=== PATIENT | female | born 1990 | race Caucasian/White ===

== ENCOUNTER 2018-05-21 07:00 | Day surgery (SDC) | payer OTHER ==
[~2018-05-21] VITALS: Ht 157.5 cm; Wt 54.4 kg
[~2018-05-21 07:00] MED LIST: CLONAZEPAM0.5 MG PO; LINZESS290 MCG PO; PANTOPRAZOLE SO40 MG PO; ULTIMATE PROBI1 EACH PO; ULTRACET PO; ZOLOFT25 MG PO
[2018-05-21] MEDS ORDERED: PERCOCET 5-3251 EACH PO (11:17)
== END 2018-05-21 13:00 | disposition home or self-care (01) ==
LOC: CIR.AMB 07:00 → EDSTATUS 10:30 → CIR.AMB 10:30 → OB/GYN 10:30 → O/R 11:06 → OB/GYN 11:06 → CIR.AMB 13:00 → OB/GYN 13:10 → O/R 13:10 → OB/GYN 08-21 10:30
DX: N83.291 Other ovarian cyst, right side (principal); N73.6 Female pelvic peritoneal adhesions (postinfective)